=== PATIENT | female | born 1990 ===

== ENCOUNTER 2022-12-31 20:32 | Inpatient (IN) | payer OTHER, SELFPAY ==
--- NOTE | 2022-12-31 23:58 | PC.ADMIT ---
pt is a 32 year female who presented [facility] ED with AH, SI, and seeing spirits. in the ED, pt reported to seeing spirits and wanted to slit her throat with a knife. pt was in a partial program called [facility] before going to the hospital. pt tox screen was positive for THC. pt has PMH of chronic kidney disease, anxiety disorder, major depressive disorder, and AV fistula. pt has a AV fistula in left arm, so BPs cannot be performed in that arm. pt had a skin check performed. pt is receptive to treatment is looking forward to working with her doctor. start treatment plan and promote safety.
[2023-01-01 06:00] VITALS: BP 94/59; PULSE 88; RESP 18; TEMP 37.1; O2SAT 100
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
[2023-01-01 21:00] VITALS: BP 127/69; PULSE 107; TEMP 2.5; TEMP 36.5
[2023-01-02 08:14] VITALS: BP 106/58; PULSE 80; RESP 16; TEMP 36.4; O2SAT 100
[2023-01-02 15:51] VITALS: BP 95/60; PULSE 88; RESP 16; TEMP 36.4; O2SAT 98
--- NOTE | 2023-01-02 16:32 | HO.PSYCHPN ---
Subjective Subjective Date of Service: 01/02/23 Reason For Visit: psychosis Interim History: Pt reports no concerns today. She is visable in milieu, very social, interactive, approachable. She is missing her home and hopes for discharge soon. Discussed having labs tomorrow and she agrees. Talked of her history of CKD and wait for dialysis. Medication Compliance: Yes Attending Groups: No Review of Systems Acute medical concerns: No Medical Review of Systems: unchanged Mental Status Exam Mental Status Exam Patient Appearance: Appropriate Patient Orientation: Person, Place, Time and Situation Level of Consciousness: Alert Patient Behavior: Talkative and Good Eye Contact Mood Description: Anxious, Elated and Apprehensive Affect Description: Anxious and Apprehensive Patient Cognition Impaired: No Speech Pattern: Spontaneous Speech Memory Description: Episodic Impaired Thought Process: Distracted Thought Content: positive for Perseveration Depressive Symptoms: Increased Anxiety Judgement: Fair Diagnostics Vital Signs (24Hr): Vital Signs - 24 hr 01/01/23 21:00 01/02/23 08:14 01/02/23 15:51 Temperature 36.5 F L 97.6 F 97.6 F Pulse Rate 107 H 80 88 Respiratory Rate 16 16 Blood Pressure 127/69 106/58 L 95/60 Pulse Oximetry 100 98 Oxygen Delivery Method Room Air Room Air Labs 01/03/23 07:18 01/03/23 14:46 Labs: Laboratory Results - last 48 hr 01/01/23 08:03 Estimat Average Glucose 80 Hemoglobin A1c % 4.4 Triglycerides 177 H Cholesterol 131 LDL Cholesterol, Calc 60 HDL Cholesterol 36 L Medications Medications Current Medications Acetaminophen (Acetaminophen 325 Mg Tablet) 650 mg PO Q6H PRN PRN Reason: Headache/Pain Mild Scale (1-3) Al Hydroxide/Mg Hydroxide (Magnesium Hydrox/Alum Hydrox 30 Ml Oral.Susp) 30 ml PO Q6H PRN PRN Reason: Heartburn/Nausea Calcitriol (Calcitriol 0.25 Mcg Capsule) 0.25 mcg PO DAILY [facility] Last Admin: 01/02/23 08:45 Dose: 0.25 mcg Ergocalciferol (Ergocalciferol (Vitamin D2) 1,250 Mcg Capsule) 1,250 mcg PO Q7D [facility] Last Admin: 01/01/23 15:45 Dose: 1,250 mcg Hydroxyzine HCl (Hydroxyzine Hcl 25 Mg Tablet) 25 mg PO Q6H PRN PRN Reason: Anxiety Lisinopril (Lisinopril 2.5 Mg Tablet) 2.5 mg PO DAILY [facility]; Protocol Last Admin: 01/02/23 08:45 Dose: 2.5 mg Magnesium Hydroxide (Milk Of Magnesia 30 Ml Oral.Susp) 30 ml PO DAILY PRN PRN Reason: Constipation Melatonin (Melatonin 3 Mg Tablet) 6 mg PO BEDTIME PRN PRN Reason: Insomnia Nicotine (Nicotine 21 Mg Patch.Td24) 21 mg TRANSDERMA DAILY PRN PRN Reason: smoking cessation Last Admin: 01/02/23 08:53 Dose: 21 mg Nicotine Polacrilex (Nicotine Polacrilex 2 Mg Gum) 4 mg BUCCAL Q2H PRN PRN Reason: Nicotine Cravings Non-Formulary Medication (Febuxostat) 40 mg PO DAILY [facility] Risperidone (Risperidone 0.25 Mg Tablet) 0.25 mg PO BID [facility] Last Admin: 01/02/23 08:45 Dose: 0.25 mg Allergies Allergies Allergy/AdvReac Type Severity Reaction Status Date / Time Penicillins Allergy Anaphylaxis Verified 12/31/22 22:41 Assessment & Plan Assessment & Plan (1) Psychotic disorder: Status: Acute Code(s): F29 - Unspecified psychosis not due to a substance or known physiological condition (2) CKD (chronic kidney disease) stage 4, GFR 15-29 ml/min: Status: Acute Code(s): N18.4 - Chronic kidney disease, stage 4 (severe) Assessment and Plan: Congenital; status post fistula since July 2022 Plan Patient is a 32-year-old female with history of depression, anxiety, ADHD, 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 Patient polite, cooperative and friendly but vague in her reporting. She says she came to the hospital because she wants to talk to a doctor... Because she wants help... Saying my brain got worse in October... Patient having a difficult time articulating her symptoms. She says she 1st started getting AH of a hissing sound or police sirens in July which coincided with getting fistula placed; then she said her eye started twitching and something about her neurons.... 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 Safety Attendant tried to assess her insomnia; she denies any manic episodes but reports that she will sometimes stay up late waiting for her to call (later discovered, no but boyfriend that she met online though has never physically met). Patient was a program at [place] (though not sure for what) for the past week but instead of completing the program she was sent or agreed to go to the hospital instead; in ED she was started on Risperdal 0.25 mg b.i.d. and admitted to [facility]. Patient says that for the past 2 days on Risperdal she has been feeling better, sleeping better thinking more clearly and that AH is diminishing. Impression: Patient is reporting is a little vague and history not fully clear. Diagnosis not fully clear but provisionally, psychotic illness is adequate (may be also schizotypal?). Patient reported psychiatric issues, AH and brain confusion started this past May however it seems much more likely that patient has mental health issues prior to this, including being in special education classes and losing custody of her 14-year-old daughter via the court. Patient has congenital CKD, currently stage IV status post fistula and so will tread lightly in terms of medication management. She was started on Risperdal 0.25 mg b.i.d. 2 days ago in the emergency room; will leave it there for now as patient reports symptoms of AH ready improved, including clear thinking, less AH and better sleep. Plan: CV Q15 Continue Risperdal 0.25mg BID continue home meds gather collateral reviewed labs from sending facility; chronically elevated creatinine otherwise not concerning 01/02- continue tx. Labs 01/03 to follow for CKD. Informed Consent: understands Reason for continued inpatient stay Substantial Risk for: rapid decompensation Time Spent With Patient Time: Total time managing care of this patient today ____ minutes.
[2023-01-03 07:59] LABS: Alanine Aminotransferase 11 U/L (0-31); Albumin Level 3.7 g/dL (3.5-5.0); Alkaline Phosphatase 43 U/L (39-117); Anion Gap 14 (12-20); Aspartate Amino Transferase 12 U/L (5-31); Bilirubin Total 0.2 mg/dL (0.0-1.0); Blood Urea Nitrogen 69 mg/dL (9-16); Calcium 9.7 mg/dL (8.4-10.2); Carbon Dioxide 18 mmol/L (22-29); Chloride 112 mmol/L (96-108); Estimated Glomerular Filt Rate 13; Glucose Random 90 mg/dL (60-115); Potassium 6.4 mmol/L (3.3-5.1); Sodium 138 mmol/L (135-145); Total Protein 5.8 g/dL (6.5-8.0)
[2023-01-03 08:00] VITALS: BP 119/69; PULSE 85; RESP 16; TEMP 35.9; O2SAT 100
--- NOTE | 2023-01-03 09:01 | PC.NURSE ---
Provider Shelly Boyer ADVERTISING OPERATIONS COORDINATOR notified of elevated Potassium of 6.4. New orders received for IV placement and Lokelma. IV placed in right AC on unit by ED RN at 0905 and medication administered as ordered. Stat repeat labwork ordered and hospital PA on unit to assess patient. Pt placed on 1:1 for safety due to IV placement.
--- NOTE | 2023-01-03 09:46 | HO.HSGERICON ---
History of Present Illness Data of Consult Service Date: 01/03/23 Requesting physician: Poly Boyer Primary Care Provider: Unknown Physician HPI Reason for consult: CKD pt, pending dialysis, K6.4 this a.m. This is a 32 year old female with history of congenital kidney disease currently CKF4 currently admitted to for management of mental health issues which have become more troublesome over the past few weeks. Routine labs were obtained today and revealed a potassium of 6.4. The hospitalist service was asked to see her in consultation for assistance and management. Patient's primary mine wedge sawyer is Dr. Grewal in [place], [place]. She is unable to provide any specific diagnosis around her kidney disease, just stating that it stems from . She had AV fistula placed in July in her left upper extremity unfortunately is nonfunctioning. She states there are plans to abandon the left side and place a fistula in the right upper extremity in the coming weeks. She was previously taking sodium bicarbonate and Lokelma daily but these were discontinued on December 01 during last visit with her mine wedge sawyer at which time her potassium was reportedly normal. Today she denies any shortness of breath. She is eating ok and has no other medical complaints. [facility] Medical History CKD (chronic kidney disease) stage 4, GFR 15-29 ml/min Psychotic disorder Functional capacity: independent ambulation Pertinent family history: denies any family history of kidney disease Social History Household Members: Family Housing: Apartment Do you presently have visiting nurse or other home services: No Patient Tobacco Use Status: Current everyday Tobacco user Tobacco use type: Cigarette Cigarette Packs Per Day: 1.5 Cigarettes Per Day: 30.0 Smoked in Last 30 Days: Yes e-Cigarette/Vaping Use: Never Used Patient Interested in Nicotine Replacement: Yes (patch and gum) Patient Given Instructions on How to Stop Smoking: Yes Date Education Initiated: 01/01/23 Second Hand Smoke Exposure: No Use of substances other than those prescribed or required for medical reasons: Yes Substance Use Type: Marijuana Substance Use Frequency: Occasionally Last Used Substance: Just Prior to Admission Currently Displaying Signs/Symptoms of Drug Intoxication Withdrawal: No Any prior treatment program specific to substance use: No Have you been hit, kicked, punched, or otherwise hurt by someone within the past year? If so, by whom?: No Do you feel safe in your current relationship?: No Current Relationship Is there a partner from a previous relationship who is making you feel unsafe now?: No Are you made to feel afraid or neglected: No Advance Directives: No Advance Directives Information Provided: No Do you have thoughts of harming others: None Do you have a plan to hurt others: No Plan Recently lost weight without trying: No How much weight loss: Not applicable Eating poorly because of decreased appetite: No Nutrition screen score: 0 Nutrition Risks: No Nutritional Risk Patient : No : No Poor oral hygiene: No Meds Allergies Allergy/AdvReac Type Severity Reaction Status Date / Time Penicillins Allergy Anaphylaxis Verified 12/31/22 22:41 Active Medications: Current Medications Acetaminophen (Acetaminophen 325 Mg Tablet) 650 mg PO Q6H PRN PRN Reason: Headache/Pain Mild Scale (1-3) Al Hydroxide/Mg Hydroxide (Magnesium Hydrox/Alum Hydrox 30 Ml Oral.Susp) 30 ml PO Q6H PRN PRN Reason: Heartburn/Nausea Calcitriol (Calcitriol 0.25 Mcg Capsule) 0.25 mcg PO DAILY [facility] Last Admin: 01/03/23 08:22 Dose: 0.25 mcg Ergocalciferol (Ergocalciferol (Vitamin D2) 1,250 Mcg Capsule) 1,250 mcg PO Q7D [facility] Last Admin: 01/01/23 15:45 Dose: 1,250 mcg Hydroxyzine HCl (Hydroxyzine Hcl 25 Mg Tablet) 25 mg PO Q6H PRN PRN Reason: Anxiety Lisinopril (Lisinopril 2.5 Mg Tablet) 2.5 mg PO DAILY [facility]; Protocol Last Admin: 01/03/23 08:22 Dose: 2.5 mg Magnesium Hydroxide (Milk Of Magnesia 30 Ml Oral.Susp) 30 ml PO DAILY PRN PRN Reason: Constipation Melatonin (Melatonin 3 Mg Tablet) 6 mg PO BEDTIME PRN PRN Reason: Insomnia Nicotine (Nicotine 21 Mg Patch.Td24) 21 mg TRANSDERMA DAILY PRN PRN Reason: smoking cessation Last Admin: 01/02/23 08:53 Dose: 21 mg Nicotine Polacrilex (Nicotine Polacrilex 2 Mg Gum) 4 mg BUCCAL Q2H PRN PRN Reason: Nicotine Cravings Non-Formulary Medication (Febuxostat) 40 mg PO DAILY [facility] Risperidone (Risperidone 0.25 Mg Tablet) 0.25 mg PO BID [facility] Last Admin: 01/03/23 08:22 Dose: 0.25 mg Home Medications Medication Instructions Recorded Confirmed Last Taken Type calcitriol 0.25 mcg capsule 0.25 mcg PO DAILY 12/31/22 12/31/22 Unknown History ergocalciferol (vitamin D2) 1,250 1,250 mcg PO QWEEK 12/31/22 12/31/22 Unknown History mcg (50,000 unit) capsule febuxostat 40 mg tablet 40 mg PO DAILY 12/31/22 12/31/22 Unknown History hydroxyzine HCl 25 mg tablet 25 mg PO TID PRN Anxiety 12/31/22 12/31/22 Unknown History lisinopril 2.5 mg tablet 2.5 mg PO DAILY 12/31/22 12/31/22 Unknown History melatonin 3 mg tablet 6 mg PO BEDTIME PRN Insomnia 12/31/22 12/31/22 Unknown History nicotine 21 mg/24 hr daily 1 patch transdermal DAILY 12/31/22 12/31/22 Unknown History transdermal patch risperidone 0.25 mg tablet 0.25 mg PO BID 12/31/22 12/31/22 Unknown History Results Labs 01/03/23 07:18 01/03/23 09:11 Labs: Laboratory Results - last 24 hr 01/03/23 07:18 MCV 91.9 MCH 32.2 MCHC 35.1 H RDW 11.1 Plt Count 159 L MPV 13.0 H Absolute Nucleated RBC 0.000 Nucleated RBC % (auto) 0.0 Anion Gap 14 Estim Creat Clear Calc TNP Estimated GFR 13 Random Glucose 90 Calcium 9.7 Total Bilirubin 0.2 AST 12 ALT 11 Alkaline Phosphatase 43 Total Protein 5.8 L Albumin 3.7 Assessment and Plan (1) Hyperkalemia: Status: Acute Plan This is a 32-year-old female with history of CKD4, PTSD, anxiety, ADHD admitted to [facility] for management of increased anxiety found hyperkalemia Hyperkalemia/metabolic acidosis/CKD4 EKG normal -stop lisinopril -K restricted diet -lokelma 10 gm x2 today, then daily until k normalizes after which time can likely change to q2d or 3x/wk dosing -sodium bicarb 1300 bid -1L sodium bicarb -repeat BMP this afternoon -follow BMP daily until K improves -nephrology following thank you for allowing us to participate in the care of this patient, we will follow along for now Time Spent With Patient Time: Total time managing care of this patient today ____ minutes. Physical Exam Vital Signs: Last Vital Signs Temp 96.6 F L 01/03/23 08:00 Pulse 85 01/03/23 08:00 Resp 16 01/03/23 08:00 BP 119/69 01/03/23 08:00 Pulse Ox 100 01/03/23 08:00 O2 Del Method Room Air 01/03/23 08:00 Const General: cooperative, comfortable, no acute distress, alert and awake Nutritional Appearance: thin Orientation/consciousness: patient oriented x3 Resp Effort & Inspection: normal respiratory effort, able to speak in complete sentences, no respiratory distress and no use of accessory muscles Auscultation: clear to auscultation bilaterally Cardio Rate: regular rate GI Other: multiple well healed surgical scars Neuro General: patient oriented x3, moves all extremities and CN's II-XI intact bilaterally Cranial nerves: Yes CN's II-XII intact bilaterally
--- NOTE | 2023-01-03 11:33 | PM.CNNEP ---
History of Present Illness Reason for Consult Consult date: 01/03/23 Chief Complaint Chief complaint: psychosis History of Present Illness Narrative: Ms. 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 Course is now complicated by metabolic acidosis, hyperkalemia and CKD without oliguria. She has a LUE AVF which has failed, never used, with plans to convert to RUE AVG in the future. She tells me she used to be on Sodium BIcarbonate and Lokelma which were stopped in November. [facility] Past Medical History Medical History CKD (chronic kidney disease) stage 4, GFR 15-29 ml/min Psychotic disorder Functional capacity: independent ambulation Family History Pertinent family history: denies any family history of kidney disease Social History Social History Household Members: Family Housing: Apartment Do you presently have visiting nurse or other home services: No Patient Tobacco Use Status: Current everyday Tobacco user Tobacco use type: Cigarette Cigarette Packs Per Day: 1.5 Cigarettes Per Day: 30.0 Smoked in Last 30 Days: Yes e-Cigarette/Vaping Use: Never Used Patient Interested in Nicotine Replacement: Yes (patch and gum) Patient Given Instructions on How to Stop Smoking: Yes Date Education Initiated: 01/01/23 Second Hand Smoke Exposure: No Use of substances other than those prescribed or required for medical reasons: Yes Substance Use Type: Marijuana Substance Use Frequency: Occasionally Last Used Substance: Just Prior to Admission Currently Displaying Signs/Symptoms of Drug Intoxication Withdrawal: No Any prior treatment program specific to substance use: No Have you been hit, kicked, punched, or otherwise hurt by someone within the past year? If so, by whom?: No Do you feel safe in your current relationship?: No Current Relationship Is there a partner from a previous relationship who is making you feel unsafe now?: No Are you made to feel afraid or neglected: No Advance Directives: No Advance Directives Information Provided: No Do you have thoughts of harming others: None Do you have a plan to hurt others: No Plan Recently lost weight without trying: No How much weight loss: Not applicable Eating poorly because of decreased appetite: No Nutrition screen score: 0 Nutrition Risks: No Nutritional Risk Patient : No : No Poor oral hygiene: No Meds Allergies Allergy/AdvReac Type Severity Reaction Status Date / Time Penicillins Allergy Anaphylaxis Verified 12/31/22 22:41 Active Medications: Current Medications Acetaminophen (Acetaminophen 325 Mg Tablet) 650 mg PO Q6H PRN PRN Reason: Headache/Pain Mild Scale (1-3) Al Hydroxide/Mg Hydroxide (Magnesium Hydrox/Alum Hydrox 30 Ml Oral.Susp) 30 ml PO Q6H PRN PRN Reason: Heartburn/Nausea Calcitriol (Calcitriol 0.25 Mcg Capsule) 0.25 mcg PO DAILY [facility] Last Admin: 01/03/23 08:22 Dose: 0.25 mcg Ergocalciferol (Ergocalciferol (Vitamin D2) 1,250 Mcg Capsule) 1,250 mcg PO Q7D [facility] Last Admin: 01/01/23 15:45 Dose: 1,250 mcg Hydroxyzine HCl (Hydroxyzine Hcl 25 Mg Tablet) 25 mg PO Q6H PRN PRN Reason: Anxiety Sodium Bicarbonate 150 meq/ (Dextrose) 1,000 mls @ 100 mls/hr IV .Q10H [facility] Stop: 01/03/23 20:29 Magnesium Hydroxide (Milk Of Magnesia 30 Ml Oral.Susp) 30 ml PO DAILY PRN PRN Reason: Constipation Melatonin (Melatonin 3 Mg Tablet) 6 mg PO BEDTIME PRN PRN Reason: Insomnia Nicotine (Nicotine 21 Mg Patch.Td24) 21 mg TRANSDERMA DAILY PRN PRN Reason: smoking cessation Last Admin: 01/02/23 08:53 Dose: 21 mg Nicotine Polacrilex (Nicotine Polacrilex 2 Mg Gum) 4 mg BUCCAL Q2H PRN PRN Reason: Nicotine Cravings Non-Formulary Medication (Febuxostat) 40 mg PO DAILY [facility] Risperidone (Risperidone 0.25 Mg Tablet) 0.25 mg PO BID [facility] Last Admin: 01/03/23 08:22 Dose: 0.25 mg Sodium Bicarbonate (Sodium Bicarbonate 650 Mg Tablet) 1,300 mg PO BID [facility] Last Admin: 01/03/23 11:00 Dose: 1,300 mg Sodium Zirconium Cyclosilicate (Sodium Zirconium Cyclosilicate 10 Gm Powd.Pack) 10 gm PO DAILY [facility] Sodium Zirconium Cyclosilicate (Sodium Zirconium Cyclosilicate 10 Gm Powd.Pack) 10 gm PO DAILY [facility] Stop: 01/03/23 17:01 Home Medications Medication Instructions Recorded Confirmed Last Taken Type calcitriol 0.25 mcg capsule 0.25 mcg PO DAILY 12/31/22 12/31/22 Unknown History ergocalciferol (vitamin D2) 1,250 1,250 mcg PO QWEEK 12/31/22 12/31/22 Unknown History mcg (50,000 unit) capsule febuxostat 40 mg tablet 40 mg PO DAILY 12/31/22 12/31/22 Unknown History hydroxyzine HCl 25 mg tablet 25 mg PO TID PRN Anxiety 12/31/22 12/31/22 Unknown History lisinopril 2.5 mg tablet 2.5 mg PO DAILY 12/31/22 12/31/22 Unknown History melatonin 3 mg tablet 6 mg PO BEDTIME PRN Insomnia 12/31/22 12/31/22 Unknown History nicotine 21 mg/24 hr daily 1 patch transdermal DAILY 12/31/22 12/31/22 Unknown History transdermal patch risperidone 0.25 mg tablet 0.25 mg PO BID 12/31/22 12/31/22 Unknown History Physical Exam Vital Signs: Last Vital Signs Temp 96.6 F L 01/03/23 08:00 Pulse 85 01/03/23 08:00 Resp 16 01/03/23 08:00 BP 119/69 01/03/23 08:00 Pulse Ox 100 01/03/23 08:00 O2 Del Method Room Air 01/03/23 08:00 Const General: cooperative, comfortable, no acute distress, alert and awake Nutritional Appearance: thin Orientation/consciousness: patient oriented x3 Resp Effort & Inspection: normal respiratory effort, able to speak in complete sentences, no respiratory distress and no use of accessory muscles Auscultation: clear to auscultation bilaterally Cardio Rate: regular rate GI Other: multiple well healed surgical scars Neuro General: patient oriented x3, moves all extremities and CN's II-XI intact bilaterally Cranial nerves: Yes CN's II-XII intact bilaterally Results Lab Results 01/03/23 07:18 01/03/23 09:11 Lab results: Chemistry 01/03/23 01/03/23 07:18 09:11 Sodium 138 Potassium 6.4 H* 6.4 H* Carbon Dioxide 18 L BUN 69 H Creatinine 3.86 H Calcium 9.7 Hematology 10/08/23 07:18 WBC 7.1 Hgb 10.7 L Plt Count 159 L Assessment and Plan (1) Hyperkalemia: Status: Acute (2) CKD stage G5/A1, GFR <15 and albumin creatinine ratio <30 mg/g: Status: Acute (3) Metabolic acidosis: Status: Acute (4) RTA (renal tubular acidosis): Status: Acute Plan Ms. 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 Course is now complicated by metabolic acidosis, hyperkalemia and CKD without oliguria. 1. CKD stage 5, stable Non oliguric Without acute dialysis need 2. Hyperkalemia Induced by uncontrolled metabolic acidosis and Lisinopril use EKG normal 3. 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 Isotonic 150meq/L formulation -repeat BMP this afternoon Time Spent With Patient Time: Total time managing care of this patient today ____ minutes. Procedures Date of Service Date of Service: 01/03/23
--- NOTE | 2023-01-03 13:38 | HO.PSYCHPN ---
Subjective Subjective Date of Service: 01/03/23 Reason For Visit: psychosis Interim History: Hyperkalemic with labs today. Consultations with hospitalist and nephrology much appreciated. Pt had IV start, sodium bicarb,lokelma, repeat labs this afternoon. Care discussed with pt's mom, Shayy who reports pt did have good control of K+, however with poor appetite she was not following a regime where she was eating regularly to sustain. Mom agrees that a nutritional consult and continuing a regular diet to offer pt choices is the best approach to avoid weight loss and to keep electrolytes in balance. Pt one one to one due to IV. She discussed knowing she was not feeling well and knowing something was not right this a.m. She is well informed about her illness and is a good self advocate. Medication Compliance: Yes Attending Groups: Intermittent Review of Systems Acute medical concerns: No Medical Review of Systems: unchanged Mental Status Exam Mental Status Exam Patient Appearance: Appropriate Patient Orientation: Person, Place, Time and Situation Level of Consciousness: Alert Patient Behavior: Talkative and Good Eye Contact Mood Description: Anxious, Elated and Apprehensive Affect Description: Anxious and Apprehensive Patient Cognition Impaired: No Speech Pattern: Spontaneous Speech Memory Description: Episodic Impaired Thought Process: Distracted Thought Content: positive for Perseveration Depressive Symptoms: Increased Anxiety Judgement: Fair Diagnostics Vital Signs (24Hr): Vital Signs - 24 hr 01/02/23 15:51 01/03/23 08:00 Temperature 97.6 F 96.6 F L Pulse Rate 88 85 Respiratory Rate 16 16 Blood Pressure 95/60 119/69 Pulse Oximetry 98 100 Oxygen Delivery Method Room Air Room Air Labs 01/03/23 07:18 01/03/23 14:46 Labs: Laboratory Results - last 48 hr 01/03/23 01/03/23 07:18 09:11 WBC 7.1 RBC 3.32 L Hgb 10.7 L Hct 30.5 L MCV 91.9 MCH 32.2 MCHC 35.1 H RDW 11.1 Plt Count 159 L MPV 13.0 H Absolute Nucleated RBC 0.000 Nucleated RBC % (auto) 0.0 Sodium 138 Potassium 6.4 H* 6.4 H* Chloride 112 H Carbon Dioxide 18 L Anion Gap 14 BUN 69 H Creatinine 3.86 H Estim Creat Clear Calc TNP Estimated GFR 13 Random Glucose 90 Calcium 9.7 Total Bilirubin 0.2 AST 12 ALT 11 Alkaline Phosphatase 43 Total Protein 5.8 L Albumin 3.7 Medications Medications Current Medications Acetaminophen (Acetaminophen 325 Mg Tablet) 650 mg PO Q6H PRN PRN Reason: Headache/Pain Mild Scale (1-3) Al Hydroxide/Mg Hydroxide (Magnesium Hydrox/Alum Hydrox 30 Ml Oral.Susp) 30 ml PO Q6H PRN PRN Reason: Heartburn/Nausea Calcitriol (Calcitriol 0.25 Mcg Capsule) 0.25 mcg PO DAILY [facility] Last Admin: 01/03/23 08:22 Dose: 0.25 mcg Ergocalciferol (Ergocalciferol (Vitamin D2) 1,250 Mcg Capsule) 1,250 mcg PO Q7D [facility] Last Admin: 01/01/23 15:45 Dose: 1,250 mcg Hydroxyzine HCl (Hydroxyzine Hcl 25 Mg Tablet) 25 mg PO Q6H PRN PRN Reason: Anxiety Sodium Bicarbonate 150 meq/ (Dextrose) 1,000 mls @ 100 mls/hr IV .Q10H [facility] Stop: 01/03/23 20:29 Last Admin: 01/03/23 11:32 Dose: 100 mls/hr Magnesium Hydroxide (Milk Of Magnesia 30 Ml Oral.Susp) 30 ml PO DAILY PRN PRN Reason: Constipation Melatonin (Melatonin 3 Mg Tablet) 6 mg PO BEDTIME PRN PRN Reason: Insomnia Nicotine (Nicotine 21 Mg Patch.Td24) 21 mg TRANSDERMA DAILY PRN PRN Reason: smoking cessation Last Admin: 01/02/23 08:53 Dose: 21 mg Nicotine Polacrilex (Nicotine Polacrilex 2 Mg Gum) 4 mg BUCCAL Q2H PRN PRN Reason: Nicotine Cravings Non-Formulary Medication (Febuxostat) 40 mg PO DAILY [facility] Risperidone (Risperidone 0.25 Mg Tablet) 0.25 mg PO BID [facility] Last Admin: 01/03/23 08:22 Dose: 0.25 mg Sodium Bicarbonate (Sodium Bicarbonate 650 Mg Tablet) 1,300 mg PO BID [facility] Last Admin: 01/03/23 11:00 Dose: 1,300 mg Sodium Zirconium Cyclosilicate (Sodium Zirconium Cyclosilicate 10 Gm Powd.Pack) 10 gm PO DAILY [facility] Sodium Zirconium Cyclosilicate (Sodium Zirconium Cyclosilicate 10 Gm Powd.Pack) 10 gm PO DAILY [facility] Stop: 01/03/23 17:01 Allergies Allergies Allergy/AdvReac Type Severity Reaction Status Date / Time Penicillins Allergy Anaphylaxis Verified 12/31/22 22:41 Assessment & Plan Assessment & Plan (1) Hyperkalemia: Status: Acute Code(s): E87.5 - Hyperkalemia (2) CKD stage G5/A1, GFR <15 and albumin creatinine ratio <30 mg/g: Status: Acute Code(s): N18.5 - Chronic kidney disease, stage 5 (3) Metabolic acidosis: Status: Acute Code(s): E87.20 - Acidosis, unspecified (4) RTA (renal tubular acidosis): Status: Acute Code(s): N25.89 - Other disorders resulting from impaired renal tubular function (5) Psychotic disorder: Status: Acute Code(s): F29 - Unspecified psychosis not due to a substance or known physiological condition Assessment and Plan: 01/03/23 continue medical plan and current regime and plan of care. nutritional consult Plan Ms. 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 Course is now complicated by metabolic acidosis, hyperkalemia and CKD without oliguria. 1. CKD stage 5, stable Non oliguric Without acute dialysis need 2. Hyperkalemia Induced by uncontrolled metabolic acidosis and Lisinopril use EKG normal 3. 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 Isotonic 150meq/L formulation -repeat BMP this afternoon Informed Consent: understands Reason for continued inpatient stay Substantial Risk for: rapid decompensation Time Spent With Patient Time: Total time managing care of this patient today ____ minutes.
--- NOTE | 2023-01-03 15:23 | PC.NURSE ---
Lab called to report critical Creatinine of 4.17. Hospitalist Jolie MAGANA and Poly Boyer NP both notified of critical value.
[2023-01-03 18:00] VITALS: PULSE 94; RESP 20; TEMP 37.1; O2SAT 100
[2023-01-04 06:00] VITALS: BP 104/56; PULSE 87; RESP 18; TEMP 36; O2SAT 100
--- NOTE | 2023-01-04 12:07 | MHC.CLN ---
NUTRITION CONSULT FOR CKD, POOR INTAKE AND FOOD CHOICES. PATIENT WITH CONGENITAL RENAL DISEASE, CKD STAGE 5, NON OLIGURIC WITHOUT ACUTE DIALYSIS NEED. HAS AV FISTULA. VISITED WITH PATIENT IN PRIVATE ROOM. APPEARS WELL EDUCATED ON DIET RESTRICTIONS REGARDING CKD. DOES NOT WANT NUTRITIONAL SUPPLEMENT. PROVIDED PATIENT WITH THERAPEUTIC MENU FOR 2 GRAM SODIUM, LOW POTASSIUM, LOW PHOSPHORUS (FACILITY RENAL DIET). DOES NOT WANT RESTRICTED DIET AND WANTS TO CONTINUE TO MAKE OWN FOOD CHOICES. ADVISED TO REVIEW FOOD ITEMS ON THERAPEUTIC MENU FOR BEST CHOICES. REVIEWED PATIENT CONVERSATION WITH NURSING. PATIENT APPEARS THIN. SUSPECT THAT INTAKE WILL BE POOR WITH RESTRICTED, THERAPEUTIC DIET. RECOMMEND THAT NEPHROLOGY CONTINUE TO MONITOR CLOSELY. RD AVAILABLE BY CONSULT NEEDED.
--- NOTE | 2023-01-04 12:44 | PM.PNNEP ---
Subjective Subjective Date of Service: 01/04/23 Interval history: Acidosis under control K in manageable range Pt non-oliguric Physical Exam Vital Signs: Vital Signs: Last Vital Signs Temp 96.8 F 01/04/23 06:00 Pulse 87 01/04/23 06:00 Resp 18 01/04/23 06:00 BP 104/56 L 01/04/23 06:00 Pulse Ox 100 01/04/23 06:00 O2 Del Method Room Air 01/04/23 06:00 Const: General: cooperative, comfortable, no acute distress, alert and awake Nutritional Appearance: thin Orientation/consciousness: patient oriented x3 Resp: Effort & Inspection: normal respiratory effort, able to speak in complete sentences, no respiratory distress and no use of accessory muscles Auscultation: clear to auscultation bilaterally Cardio: Rate: regular rate GI: Other: multiple well healed surgical scars Neuro: General: patient oriented x3, moves all extremities and CN's II-XI intact bilaterally Cranial nerves: Yes CN's II-XII intact bilaterally Objective Data Labs 01/03/23 07:18 01/04/23 07:55 Labs: Laboratory Results - last 24 hr 01/03/23 01/04/23 14:46 07:55 Sodium 139 141 Potassium 5.3 H 5.2 H Chloride 106 106 Carbon Dioxide 22 24 Anion Gap 16 16 BUN 68 H 72 H Creatinine 4.17 H* 4.34 H* Estim Creat Clear Calc TNP TNP Estimated GFR 12 12 Random Glucose 89 88 Calcium 9.7 8.8 D Procedures Date of Service Date of Service: 01/04/23 Assessment & Plan Assessment and plan (1) Hyperkalemia: Status: Acute (2) CKD stage G5/A1, GFR <15 and albumin creatinine ratio <30 mg/g: Status: Acute (3) Metabolic acidosis: Status: Acute (4) RTA (renal tubular acidosis): Status: Acute Plan Ms. 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 Course is now complicated by metabolic acidosis, hyperkalemia and CKD without oliguria. 1. CKD stage 5, stable Non oliguric Without acute dialysis need 2. Hyperkalemia Induced by uncontrolled metabolic acidosis and Lisinopril use EKG normal 3. 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 Time Spent With Patient Time: Total time managing care of this patient today ____ minutes.
--- NOTE | 2023-01-04 13:27 | HO.PSYCHPN ---
Subjective Subjective Date of Service: 01/04/23 Reason For Visit: psychosis Interim History: Pt seen, discussed in team. Plan of care reviewed. Pt reports I have TD movements in my legs and am stopping Risperdal. Reports twitching Met with senior account representative who reports pt may keep regular diet as weight gain is a priority. Pt has been given a menu for a 2 gram Sodium, Low Potassium, Low Phosphorus Diet to help her guide choices. She has been encouraged to avoid potato chips and bananas. She is talking about discharge and will talk with primary team about this tomorrow. Medication Compliance: Yes Side effects from medications: Yes Attending Groups: No Review of Systems Acute medical concerns: No Medical Review of Systems: unchanged Mental Status Exam Mental Status Exam Patient Appearance: Appropriate Patient Orientation: Person, Place, Time and Situation Level of Consciousness: Alert Patient Behavior: Talkative and Good Eye Contact Mood Description: Anxious, Elated and Apprehensive Affect Description: Anxious and Apprehensive Patient Cognition Impaired: No Speech Pattern: Spontaneous Speech Memory Description: Episodic Impaired Thought Process: Distracted Thought Content: positive for Perseveration Depressive Symptoms: Increased Anxiety Judgement: Fair Diagnostics Vital Signs (24Hr): Vital Signs - 24 hr 01/03/23 18:00 01/04/23 06:00 Temperature 98.8 F 96.8 F Pulse Rate 94 87 Respiratory Rate 20 18 Blood Pressure 104/56 L Pulse Oximetry 100 100 Oxygen Delivery Method Room Air Room Air Labs 01/03/23 07:18 01/04/23 07:55 Labs: Laboratory Results - last 48 hr 01/03/23 01/03/23 01/03/23 07:18 09:11 14:46 WBC 7.1 RBC 3.32 L Hgb 10.7 L Hct 30.5 L MCV 91.9 MCH 32.2 MCHC 35.1 H RDW 11.1 Plt Count 159 L MPV 13.0 H Absolute Nucleated RBC 0.000 Nucleated RBC % (auto) 0.0 Sodium 138 139 Potassium 6.4 H* 6.4 H* 5.3 H Chloride 112 H 106 Carbon Dioxide 18 L 22 Anion Gap 14 16 BUN 69 H 68 H Creatinine 3.86 H 4.17 H* Estim Creat Clear Calc TNP TNP Estimated GFR 13 12 Random Glucose 90 89 Calcium 9.7 9.7 Total Bilirubin 0.2 AST 12 ALT 11 Alkaline Phosphatase 43 Total Protein 5.8 L Albumin 3.7 01/04/23 07:55 WBC RBC Hgb Hct MCV MCH MCHC RDW Plt Count MPV Absolute Nucleated RBC Nucleated RBC % (auto) Sodium 141 Potassium 5.2 H Chloride 106 Carbon Dioxide 24 Anion Gap 16 BUN 72 H Creatinine 4.34 H* Estim Creat Clear Calc TNP Estimated GFR 12 Random Glucose 88 Calcium 8.8 D Total Bilirubin AST ALT Alkaline Phosphatase Total Protein Albumin Medications Medications Current Medications Acetaminophen (Acetaminophen 325 Mg Tablet) 650 mg PO Q6H PRN PRN Reason: Headache/Pain Mild Scale (1-3) Al Hydroxide/Mg Hydroxide (Magnesium Hydrox/Alum Hydrox 30 Ml Oral.Susp) 30 ml PO Q6H PRN PRN Reason: Heartburn/Nausea Calcitriol (Calcitriol 0.25 Mcg Capsule) 0.25 mcg PO DAILY [facility] Last Admin: 01/04/23 08:46 Dose: 0.25 mcg Ergocalciferol (Ergocalciferol (Vitamin D2) 1,250 Mcg Capsule) 1,250 mcg PO Q7D [facility] Last Admin: 01/01/23 15:45 Dose: 1,250 mcg Hydroxyzine HCl (Hydroxyzine Hcl 25 Mg Tablet) 25 mg PO Q6H PRN PRN Reason: Anxiety Magnesium Hydroxide (Milk Of Magnesia 30 Ml Oral.Susp) 30 ml PO DAILY PRN PRN Reason: Constipation Melatonin (Melatonin 3 Mg Tablet) 6 mg PO BEDTIME PRN PRN Reason: Insomnia Nicotine (Nicotine 21 Mg Patch.Td24) 21 mg TRANSDERMA DAILY PRN PRN Reason: smoking cessation Last Admin: 01/02/23 08:53 Dose: 21 mg Nicotine Polacrilex (Nicotine Polacrilex 2 Mg Gum) 4 mg BUCCAL Q2H PRN PRN Reason: Nicotine Cravings Non-Formulary Medication (Febuxostat) 40 mg PO DAILY [facility] Risperidone (Risperidone 0.25 Mg Tablet) 0.25 mg PO BID [facility] Last Admin: 01/04/23 08:46 Dose: 0.25 mg Sodium Bicarbonate (Sodium Bicarbonate 650 Mg Tablet) 1,300 mg PO BID [facility] Last Admin: 01/04/23 08:46 Dose: 1,300 mg Sodium Zirconium Cyclosilicate (Sodium Zirconium Cyclosilicate 10 Gm Powd.Pack) 10 gm PO DAILY [facility] Last Admin: 01/04/23 08:46 Dose: 10 gm Allergies Allergies Allergy/AdvReac Type Severity Reaction Status Date / Time Penicillins Allergy Anaphylaxis Verified 12/31/22 22:41 Assessment & Plan Assessment & Plan (1) Hyperkalemia: Status: Acute Code(s): E87.5 - Hyperkalemia (2) CKD stage G5/A1, GFR <15 and albumin creatinine ratio <30 mg/g: Status: Acute Code(s): N18.5 - Chronic kidney disease, stage 5 (3) Metabolic acidosis: Status: Acute Code(s): E87.20 - Acidosis, unspecified (4) RTA (renal tubular acidosis): Status: Acute Code(s): N25.89 - Other disorders resulting from impaired renal tubular function (5) Psychotic disorder: Status: Acute Code(s): F29 - Unspecified psychosis not due to a substance or known physiological condition Assessment and Plan: 01/04/23- Discontinue Risperdal. Pt reports sx of twitching and TD Plan Ms. 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 Course is now complicated by metabolic acidosis, hyperkalemia and CKD without oliguria. 1. CKD stage 5, stable Non oliguric Without acute dialysis need 2. Hyperkalemia Induced by uncontrolled metabolic acidosis and Lisinopril use EKG normal 3. 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 Informed Consent: understands Reason for continued inpatient stay Substantial Risk for: rapid decompensation and med/psych decompensation Time Spent With Patient Time: Total time managing care of this patient today ____ minutes.
[2023-01-04 17:35] VITALS: BP 109/63; PULSE 78; TEMP 37.2
--- NOTE | 2023-01-04 21:05 | PC.NURSE ---
Pt c/o chest pain 3.5-07/06 to this video game script writer; pt stated pain had begun shortly beforehand. Pt said pain is located below left nipple line and is not radiating. VS: 109/63, 78, 98.9 F. OnCall provider notified and orders obtained. Stat EKG showed normal sinus rhythm, normal ECG, no changes from ECG on 01/03/23. Pt reported pain passed at 1805 and said may have stopped because she had eaten her meal.
[2023-01-05 08:00] VITALS: BP 108/61; PULSE 85; RESP 16; TEMP 36.2; O2SAT 98
--- NOTE | 2023-01-05 09:13 | HO.PSYCHPN ---
Subjective Subjective Date of Service: 01/05/23 Reason For Visit: psychosis Interim History: Met with patient; discussed with team; reviewed notes Patient reports that she is feeling much better. She denies any AVH and says she continues to feel clear minded. She said she developed some leg twitching from Risperdal and refuses to take it any longer. Air Pollution Analyst discussed metabolic acidosis/hyperkalemia and possible leg twitching from metabolic derangement however patient says regardless she does not want this medication anymore, that she feels fine. Air Pollution Analyst also expressed some concern and reminded patient that she 1st started feeling better, more clear minded, reduction of AH and able to sleep when she was 1st started on Risperdal and that given her kidney function there is likely still some circulating in her system; show card writer explained that it is quite possible or maybe even likely that symptoms will return if she remains off this medication. Patient said that she disagrees and that for now, she will take her chances and wants to discharge; she conceded that she may need medication but instead rather work with an outpatient psychiatric provider on medication regimen. Of note, patient presents with much more organized thought process. Discussed metabolic acidosis/hyperkalemia, which is now resolved, discontinuation of lisinopril and restarting of Sodium Bicarbonate/ Sodium Zirconium Cyclosilicate. Patient says that she will follow recommendations from Nephrology consult for now but will follow-up with her outpatient automation technologist Dr. Grewal regarding these medication changes. Patient also shared that via groups, she got some some insight s regarding her current boyfriend relationship although she did not want to go into details. Mental Status Exam Mental Status Exam Narrative: Pt is alert and oriented; behavior is cooperative, a little irritable but calm; patient is not in distress; dressed in casual attire with long braided hair, adequate hygiene; mood is described as good and affect congruent; eye contact appropriate; Speech is normal rate, volume and prosody and not pressured; no psychomotor agitation/retardation present; thought process goal oriented, organized and linear; Thought content is on discharge, continue treatment as an outpatient and following up with automation technologist; no delusional thinking expressed; denies any SI/HI. Denies all AVH; Patients insight and judgment fair and adequate Diagnostics Vital Signs (24Hr): Vital Signs - 24 hr 01/04/23 17:35 01/05/23 08:00 Temperature 98.9 F 97.1 F Pulse Rate 78 85 Respiratory Rate 16 Blood Pressure 109/63 108/61 Pulse Oximetry 98 Oxygen Delivery Method Room Air Labs 01/03/23 07:18 01/05/23 13:54 Labs: Laboratory Results - last 48 hr 01/03/23 01/03/23 01/04/23 09:11 14:46 07:55 Sodium 139 141 Potassium 6.4 H* 5.3 H 5.2 H Chloride 106 106 Carbon Dioxide 22 24 Anion Gap 16 16 BUN 68 H 72 H Creatinine 4.17 H* 4.34 H* Estim Creat Clear Calc TNP TNP Estimated GFR 12 12 Random Glucose 89 88 Calcium 9.7 8.8 D Medications Medications Current Medications Acetaminophen (Acetaminophen 325 Mg Tablet) 650 mg PO Q6H PRN PRN Reason: Headache/Pain Mild Scale (1-3) Al Hydroxide/Mg Hydroxide (Magnesium Hydrox/Alum Hydrox 30 Ml Oral.Susp) 30 ml PO Q6H PRN PRN Reason: Heartburn/Nausea Calcitriol (Calcitriol 0.25 Mcg Capsule) 0.25 mcg PO DAILY [facility] Last Admin: 01/05/23 08:45 Dose: 0.25 mcg Ergocalciferol (Ergocalciferol (Vitamin D2) 1,250 Mcg Capsule) 1,250 mcg PO Q7D [facility] Last Admin: 01/01/23 15:45 Dose: 1,250 mcg Hydroxyzine HCl (Hydroxyzine Hcl 25 Mg Tablet) 25 mg PO Q6H PRN PRN Reason: Anxiety Magnesium Hydroxide (Milk Of Magnesia 30 Ml Oral.Susp) 30 ml PO DAILY PRN PRN Reason: Constipation Melatonin (Melatonin 3 Mg Tablet) 6 mg PO BEDTIME PRN PRN Reason: Insomnia Nicotine (Nicotine 21 Mg Patch.Td24) 21 mg TRANSDERMA DAILY PRN PRN Reason: smoking cessation Last Admin: 01/02/23 08:53 Dose: 21 mg Nicotine Polacrilex (Nicotine Polacrilex 2 Mg Gum) 4 mg BUCCAL Q2H PRN PRN Reason: Nicotine Cravings Non-Formulary Medication (Febuxostat) 40 mg PO DAILY [facility] Sodium Bicarbonate (Sodium Bicarbonate 650 Mg Tablet) 1,300 mg PO BID [facility] Last Admin: 01/05/23 08:45 Dose: 1,300 mg Sodium Chloride (0.9 % Sodium Chloride Flush 3 Ml Syringe) 3 ml IVFLUSH QSHIFT [facility] Last Admin: 01/05/23 08:49 Dose: 3 ml Sodium Zirconium Cyclosilicate (Sodium Zirconium Cyclosilicate 10 Gm Powd.Pack) 10 gm PO DAILY [facility] Last Admin: 01/05/23 08:45 Dose: 10 gm Allergies Allergies Allergy/AdvReac Type Severity Reaction Status Date / Time Penicillins Allergy Anaphylaxis Verified 12/31/22 22:41 Assessment & Plan Assessment & Plan (1) Hyperkalemia: Status: Acute Code(s): E87.5 - Hyperkalemia (2) CKD stage G5/A1, GFR <15 and albumin creatinine ratio <30 mg/g: Status: Acute Code(s): N18.5 - Chronic kidney disease, stage 5 (3) Metabolic acidosis: Status: Resolved Code(s): E87.20 - Acidosis, unspecified (4) RTA (renal tubular acidosis): Status: Acute Code(s): N25.89 - Other disorders resulting from impaired renal tubular function (5) Psychotic disorder: Status: Acute Code(s): F29 - Unspecified psychosis not due to a substance or known physiological condition Assessment and Plan: 01/04/23- Discontinue Risperdal. 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 Patient polite, cooperative and friendly but vague in her reporting. She says she came to the hospital because she wants to talk to a doctor... Because she wants help... Saying my brain got worse in October... Patient having a difficult time articulating her symptoms. She says she 1st started getting AH of a hissing sound or police sirens in July which coincided with getting fistula placed; then she said her eye started twitching and something about her neurons.... 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 Air Pollution Analyst tried to assess her insomnia; she denies any manic episodes but reports that she will sometimes stay up late waiting for her to call (later discovered, no but boyfriend that she met online though has never physically met). Patient was a program at [facility] (though not sure for what) for the past week but instead of completing the program she was sent or agreed to go to the hospital instead; in ED she was started on Risperdal 0.25 mg b.i.d. and admitted to [facility]. Patient says that for the past 2 days on Risperdal she has been feeling better, sleeping better thinking more clearly and that AH is diminishing. Impression: Patient is reporting is a little vague and history not fully clear. Diagnosis not fully clear but provisionally, psychotic illness is adequate (may be also schizotypal?). Patient reported psychiatric issues, AH and brain confusion started this past May however it seems much more likely that patient has mental health issues prior to this, including being in special education classes and losing custody of her 14-year-old daughter via the court. Patient has congenital CKD, currently stage IV status post fistula and so will tread lightly in terms of medication management. She was started on Risperdal 0.25 mg b.i.d. 2 days ago in the emergency room; will leave it there for now as patient reports symptoms of AH ready improved, including clear thinking, less AH and better sleep. Hospital course: Patient reporting improvement since recently started on Risperdal, with reduction in AH, feeling more clear minded sleeping better. She wants to continue with this current dose. Over the weekend patient developed metabolic acidosis, hyperkalemia and CKD without oliguria; lisinopril held and Sodium Bicarbonate and Sodium Zirconium Cyclosilicate restarted; hyperkalemia resolved and patient remains stable. Patient discussed with on-call psychiatry and Pt reports I have TD movements in my legs and am stopping Risperdal. Reports twitching 01/05 Patient reports that she is feeling much better. She denies any AVH and says she continues to feel clear minded. She said she developed some leg twitching from Risperdal and refuses to take it any longer. Air Pollution Analyst discussed metabolic acidosis/hyperkalemia and possible leg twitching from metabolic derangement however patient says regardless she does not want this medication anymore, that she feels fine. Air Pollution Analyst also expressed some concern and reminded patient that she 1st started feeling better, more clear minded, reduction of AH and able to sleep when she was 1st started on Risperdal and that given her kidney function there is likely still some circulating in her system; show card writer explained that it is quite possible or maybe even likely that symptoms will return if she remains off this medication. Patient said that she disagrees and that for now, she will take her chances and wants to discharge; she conceded that she may need medication but instead rather work with an outpatient psychiatric provider on medication regimen. Of note, patient presents with much more organized thought process. -patient wants discharge. She has remained with appropriate behaviors, in good self-control, without any SI or HI and AVH having fully resolved. She reports being in a good mood and is returning to her parent's house where she lives. She agrees to follow-up with outpatient therapy and Psychiatry. Patient no longer wants any medication treatment and is focused on discharge. Patient is not in imminent risk for harm to self or others and request for discharge honored. -show card writer discussed case with Dr. Corral who saw patient over the weekend and recommended keeping medication changes but switching Sodium Zirconium Cyclosilicate to every other day -Discussed with patient metabolic acidosis/hyperkalemia, which is now resolved, discontinuation of lisinopril and restarting of Sodium Bicarbonate/ Sodium Zirconium Cyclosilicate. Patient says that she will follow recommendations from Nephrology consult for now but will follow-up with her outpatient automation technologist Dr. Grewal regarding these medication changes. -Air Pollution Analyst called patient's automation technologist, Dr. Asia Grewal and spoke with clinical senior executive assistant Lupe who said she would communicate message to Dr. Grewal. Air Pollution Analyst reported on patient's metabolic acidosis/hyperkalemia and subsequent medication changes. Air Pollution Analyst left call back number in case Dr. Grewal wanted to discuss further PLAN: CV Q 15 minutes checks Risperdal discontinued; patient reported having twitching in her legs and refuses to take; says she does not need Restarted Sodium Bicarbonate (Sodium Bicarbonate 650 Mg Tablet)? 1,300 mg PO BID NOE (Discussed with patient who will continue taking until she sees?Dr. Grewal to discuss further) Restarted Sodium Zirconium Cyclosilicate 10 Gm Powd.Pack (Lokelma)? 10 gm PO EVERY OTHER DAY (Discussed with patient who will continue taking until she sees?Dr. Grewal to discuss further) Holding Lisinopril: Discussed with patient who will continue to hold until she sees?Dr. Grewal to discuss further. 1. CKD stage 5, stable Non oliguric Without acute dialysis need 2. Hyperkalemia Induced by uncontrolled metabolic acidosis and Lisinopril use EKG normal 3. 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 Hyperkalemia/metabolic acidosis/CKD4 EKG normal -stop lisinopril -K restricted diet -lokelma 10 gm x2 today, then daily until k normalizes after which time can likely change to q2d or 3x/wk dosing -sodium bicarb 1300 bid -1L sodium bicarb -repeat BMP this afternoon -follow BMP daily until K improves -nephrology following Patient educated on: diagnosis, medication risk/benefits and medical condition Informed Consent: understands, does not understand and further education needed Reason for continued inpatient stay Substantial Risk for: stable for discharge Time Spent With Patient Time: Total time managing care of this patient today ____ minutes.
--- NOTE | 2023-01-05 15:02 | PC.NURSE ---
Dr. Gomez notified of pt's elevated Creatinine level of 4.36.
--- NOTE | 2023-01-05 15:59 | PC.NURSE ---
IV line discontinued per TO from Jovon Gomez MD, Catheter tip intact, tolerated well, pressure and band aid applied.
[2023-01-05 18:00] VITALS: BP 108/73; PULSE 73; RESP 16; TEMP 37; O2SAT 100
--- NOTE | 2023-01-05 18:21 | PM.PSYDC ---
DS: Providers Provider Date of Service: 01/06/23 Date of admission: 12/31/22 20:32 Date of discharge: 01/06/23 Primary care physician: Unknown Physician Attending physician on admission: Jovon Gomez Consults: 01/03/23 08:20 Consult to Hospitalist Stat Comment: Consulting Provider: Hospitalist Reason For Exam: CKD pt, pending dialysis, K6.4 this a.m. 01/03/23 10:45 Consult to Nephrology Routine Consulting Provider: Ryan Corral Reason for consultation: CKD, hyperkalemia Has provider been notified: No Attending physician on discharge: Jovon Gomez DS: Diagnosis Discharge Diagnosis (1) Hyperkalemia: Status: Acute (2) CKD stage G5/A1, GFR <15 and albumin creatinine ratio <30 mg/g: Status: Acute (3) Metabolic acidosis: Status: Resolved (4) RTA (renal tubular acidosis): Status: Acute (5) Psychotic disorder: Status: Acute DS: Medications Discharge Medications Home Medications: Home Medications Medication Instructions Recorded Confirmed calcitriol 0.25 mcg capsule 0.25 mcg PO DAILY 12/31/22 12/31/22 ergocalciferol (vitamin D2) 1,250 1,250 mcg PO QWEEK 12/31/22 12/31/22 mcg (50,000 unit) capsule febuxostat 40 mg tablet 40 mg PO DAILY 12/31/22 12/31/22 lisinopril 2.5 mg tablet 2.5 mg PO DAILY 12/31/22 12/31/22 melatonin 3 mg tablet 6 mg PO BEDTIME PRN Insomnia 12/31/22 12/31/22 Previous Rx's Medication Instructions Recorded sodium bicarbonate 650 mg tablet 1,300 mg (2 x 650 mg) PO BID 15 01/05/23 days #60 tabs sodium zirconium cyclosilicate 10 10 g PO Q2D 30 days #15 ea 01/05/23 gram oral powder packet (Lokelma) Mental Status Exam Mental Status Exam Narrative: Pt is alert and oriented; behavior is cooperative, a little irritable but calm; patient is not in distress; dressed in casual attire with long braided hair, adequate hygiene; mood is described as good and affect congruent; eye contact appropriate; Speech is normal rate, volume and prosody and not pressured; no psychomotor agitation/retardation present; thought process goal oriented, organized and linear; Thought content is on discharge, continue treatment as an outpatient and following up with [facility]; no delusional thinking expressed; denies any SI/HI. Denies all AVH; Patients insight and judgment fair and adequate Data Data Completed and Pending Completed studies during hospitalization [Text1]: 01/01/23 01/03/23 01/03/23 08:03 07:18 09:11 WBC 7.1 RBC 3.32 L Hgb 10.7 L Hct 30.5 L MCV 91.9 MCH 32.2 MCHC 35.1 H RDW 11.1 Plt Count 159 L MPV 13.0 H Absolute Nucleated RBC 0.000 Nucleated RBC % (auto) 0.0 Sodium 138 Potassium 6.4 H* 6.4 H* Chloride 112 H Carbon Dioxide 18 L Anion Gap 14 BUN 69 H Creatinine 3.86 H Estim Creat Clear Calc TNP Estimated GFR 13 Random Glucose 90 Estimat Average Glucose 80 Hemoglobin A1c % 4.4 Calcium 9.7 Total Bilirubin 0.2 AST 12 ALT 11 Alkaline Phosphatase 43 Total Protein 5.8 L Albumin 3.7 Triglycerides 177 H Cholesterol 131 LDL Cholesterol, Calc 60 HDL Cholesterol 36 L 01/03/23 01/04/23 01/05/23 14:46 07:55 13:54 WBC RBC Hgb Hct MCV MCH MCHC RDW Plt Count MPV Absolute Nucleated RBC Nucleated RBC % (auto) Sodium 139 141 141 Potassium 5.3 H 5.2 H 4.1 D Chloride 106 106 101 Carbon Dioxide 22 24 26 Anion Gap 16 16 18 BUN 68 H 72 H 80 H Creatinine 4.17 H* 4.34 H* 4.36 H* Estim Creat Clear Calc TNP TNP TNP Estimated GFR 12 12 12 Random Glucose 89 88 87 Estimat Average Glucose Hemoglobin A1c % Calcium 9.7 8.8 D 10.1 D Total Bilirubin AST ALT Alkaline Phosphatase Total Protein Albumin Triglycerides Cholesterol LDL Cholesterol, Calc HDL Cholesterol DS: Summary Hospital Course Hospital Course: HPI: Patient is a 32-year-old female with history of depression, anxiety, ADHD, 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 Patient polite, cooperative and friendly but vague in her reporting. She says she came to the hospital because she wants to talk to a doctor... Because she wants help... Saying my brain got worse in October... Patient having a difficult time articulating her symptoms. She says she 1st started getting AH of a hissing sound or police sirens in July which coincided with getting fistula placed; then she said her eye started twitching and something about her neurons.... 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 Elastic Attacher [employer]ch tried to assess her insomnia; she denies any manic episodes but reports that she will sometimes stay up late waiting for her to call (later discovered, no but boyfriend that she met online though has never physically met). Patient was a program at [facility] (though not sure for what) for the past week but instead of completing the program she was sent or agreed to go to the hospital instead; in ED she was started on Risperdal 0.25 mg b.i.d. and admitted to [facility]. Patient says that for the past 2 days on Risperdal she has been feeling better, sleeping better thinking more clearly and that AH is diminishing. -history from mom indicates that there seemed to have been mental health struggles even starting in high school. Her mother corroborates that something worsened with patient and that AVH and hyper focus on rastafarian/spiritual ideas as 1st started this past July; however on further inquiry it appears that patient has had bouts of disorganized behavior often on for at least 3 years prior which resulted in losing custody of her child. Hospital course: On admission patient was mostly organized but complaining of new onset auditory hallucinations, some confusion and insomnia though she denied any manic behaviors and none observed. However, just a couple days prior to this admission patient was started on Risperdal 0.25 mg b.i.d. in the emergency room which patient said has been very helpful; she says since Risperdal, she is able to sleep, is more clear minded and auditory hallucinations are much improved. Patient wanted to continue on the current dose. Patient is already with improvements and since she stage IV CKD, which could very likely result in Risperdal being prolonged in her system, service writer advisor agreed with patient to leave dose as it is. Over the weekend, patient developed metabolic acidosis, hyperkalemia and CKD without oliguria; lisinopril held and Sodium Bicarbonate and Sodium Zirconium Cyclosilicate restarted; hyperkalemia resolved and patient remained stable. Also over the weekend, Patient reported I have TD movements in my legs and am stopping Risperdal. Reports twitching and no longer wanted to take Risperdal. 01/05 Patient reports that she is feeling much better. She denies any AVH and says she continues to feel clear minded. Of note, patient is more clear, organized in speech with logical and linear thought process. She reiterated to service writer advisor that she developed some leg twitching from Risperdal and refuses to take it any longer. Elastic Attacher [employer]ch discussed metabolic acidosis/hyperkalemia and possible leg twitching from metabolic derangement however patient says regardless she does not want this medication anymore, that she feels fine. Elastic Attacher [employer]ch also expressed some concern and reminded patient that she 1st started feeling better, more clear minded, reduction of AH and able to sleep when she was 1st started on Risperdal and that given her kidney function there is likely still some circulating in her system; service writer advisor explained that it is quite possible or maybe even likely that symptoms will return if she remains off this medication. Patient said that she disagrees and that for now, she will take her chances and wants to discharge; she conceded that she may need medication but instead rather work with an outpatient psychiatric provider on medication regimen. Patient wanted discharge. She understood about her potassium, which had returned to baseline and said she would follow up on her own with her outpatient [facility] skin Dr. Grewal. Patient has remained with appropriate behaviors, in good self-control, without any SI or HI and AVH having fully resolved. She reports being in a good mood and is returning to her parent's house where she lives. She agrees to follow-up with outpatient therapy and Psychiatry. Patient no longer wants any medication treatment and is focused on discharge. Patient is not in imminent risk for harm to self or others and request for discharge honored. PLAN: Risperdal discontinued; patient reported having twitching in her legs and refuses to take; says she does not need Restarted Sodium Bicarbonate (Sodium Bicarbonate 650 Mg Tablet)? 1,300 mg PO BID NOE (Discussed with patient who will continue taking until she sees?Dr. Grewal to discuss further) Restarted Sodium Zirconium Cyclosilicate 10 Gm Powd.Pack (Lokelma)? 10 gm PO EVERY OTHER DAY (Discussed with patient who will continue taking until she sees?Dr. Grewal to discuss further) Holding Lisinopril: Discussed with patient who will continue to hold until she sees?Dr. Grewal to discuss further. -service writer advisor discussed case with Dr. Corral who saw patient over the weekend and recommended keeping medication changes but switching Sodium Zirconium Cyclosilicate to every other day -Discussed with patient metabolic acidosis/hyperkalemia, which is now resolved, discontinuation of lisinopril and restarting of Sodium Bicarbonate/ Sodium Zirconium Cyclosilicate. Patient says that she will follow recommendations from Nephrology consult for now but will follow-up with her outpatient [facility] skin Dr. Grewal regarding these medication changes. -Elastic Attacher Chain[employer]ch called patient's v[facility] marketing services and skin, Dr. Asia Grewal and spoke with clinical fire control assistant Lupe who said she would communicate message to Dr. Grewal. Elastic Attacher Chainstitch reported on patient's metabolic acidosis/hyperkalemia and subsequent medication changes. Elastic Attacher [employer]ch left call back number in case Dr. Grewal wanted to discuss further Time spent discussing smoking cessation with patient: 3 to 10 minutes Status at Discharge Functional status at discharge: independent ambulation Overall status at discharge: patient is back to baseline Time Spent with Patient Time attestation: Total time managing care of this patient today ____ minutes. Time spent: Greater than 30 minutes Discharge Plan Discharge Anticipated Discharge Date/Time: 01/06/23 10:00 Patient Disposition: Home, Self-Care Discharge Diagnosis: Psychotic disorder Referrals: Visitor Services Representative: Asia Grewal ([facility]) [Other] - 01/12/23 10:00 am Therapist: Elena Brown ([facility]) [Other] - 01/08/23 11:30 am Psychiatry: Anna Rao ([facility]) [Other] - 01/07/23 9:00 am (Appointment is in person at the office; please arrive 15 minutes early to complete paperwork ) [facility] [Other] (Please utilize for walk in services as needed. ) Discharge Medications: New Lokelma 10 gram Powder In Packet 10 g PO Q2D 30 Days Qty: 15 0RF Rx Instructions: take every OTHER day until meet with Dr. Grewal sodium bicarbonate 650 mg Tablet 1,300 mg PO BID 15 Days Qty: 60 0RF Continued melatonin 3 mg Tablet 6 mg PO BEDTIME PRN (Reason: Insomnia) ergocalciferol (vitamin D2) 1,250 mcg (50,000 unit) capsule 1,250 mcg PO QWEEK calcitriol 0.25 mcg capsule 0.25 mcg PO DAILY febuxostat 40 mg tablet 40 mg PO DAILY Held lisinopril 2.5 mg tablet 2.5 mg PO DAILY Hold Instructions: Resume on 01/12/23. DISCUSS WITH NEPHOLOGIST DR. SHORTY TONG TO RESUME Discontinued risperidone 0.25 mg Tablet 0.25 mg PO BID nicotine 21 mg/24 hr Patch 24 Hour 1 patch TRANSDERMAL DAILY hydroxyzine HCl 25 mg Tablet 25 mg PO TID PRN (Reason: Anxiety) Discharge Orders: Discharge Order (Routine); Ordered 01/06/23 Ordered By: Jovon Gomez Diet: K restricted diet Activity on Discharge: As tolerated Stand Alone Forms: Patient Portal Discharge page, Community Support Care Plan Goals: Maintain mood and safe behaviors Take medications as prescribed Continue to pursue abstinence from nicotine Practice coping skills Continue with outpatient providers and reach out to them as needed Health Concerns: Mood stability and behaviors Chronic kidney disease stage IV Plan of Treatment: Follow up with Dr. Grewal, your PCP and psychiatric provider and other outpatient providers regarding above concerns Continue potassium restricted diet (including no potato chips or bananas for now) Take medications as prescribed The following medication was held: HOLD Lisinopril: hold until Discuss with Dr. Grewal whether to restart The following 2 medications were restarted: 1.Take Sodium Bicarbonate (Sodium Bicarbonate 650 Mg Tablet)? 1,300 mg PO BID [facility] (take until you Discuss with Dr. Grewal whether to continue) 2.Take Sodium Zirconium Cyclosilicate 10 Gm Powd.Pack (Lokelma)?10 gm PO EVERY OTHER DAY (take until you Discuss with Dr. Grewal whether to continue) Assessment: Risk assessment at time of discharge:? Patient was interviewed prior to discharge and found to be fully oriented and without any SI or HI. Patient has improved insight and judgment and wants to continue treatment. Patient is not in imminent risk of harm to self or others and has a safety plan that includes presenting to the closest ER or calling 911 if feeling unsafe.? Patient has been observed closely by nursing and unit staff throughout admission; patient has not engaged in any behaviors that suggest dangerousness to self or others and has demonstrated appropriate behaviors and impulse control Discharge Date/Time: 01/06/23 09:59
[2023-01-06 08:00] VITALS: BP 130/60; PULSE 67; RESP 16; TEMP 36.1; O2SAT 100
[2023-01-06 09:31] LABS: Anion Gap 17 (12-20); Blood Urea Nitrogen 77 mg/dL (9-16); Calcium 8.9 mg/dL (8.4-10.2); Carbon Dioxide 23 mmol/L (22-29); Chloride 105 mmol/L (96-108); Estimated Glomerular Filt Rate 11; Glucose Random 84 mg/dL (60-115); Potassium 4.4 mmol/L (3.3-5.1); Sodium 141 mmol/L (135-145)
== END 2023-01-06 09:59 | disposition home or self-care (01) | DRG 751 ==
PROVIDERS: Clinical Nurse Specialist Psychiatric/Mental Health, Adult; Nurse Practitioner Acute Care; Admitting Provider Psychiatry & Neurology Psychiatry; Visit Provider Psychiatry & Neurology Psychiatry
DX: F29 Unspecified psychosis not due to a substance or known physiological condition (principal); E87.20 Acidosis, unspecified; N18.5 Chronic kidney disease, stage 5; F17.210 Nicotine dependence, cigarettes, uncomplicated; N25.89 Other disorders resulting from impaired renal tubular function; E87.5 Hyperkalemia; F90.9 Attention-deficit hyperactivity disorder, unspecified type; Z71.6 Tobacco abuse counseling; Z79.899 Other long term (current) drug therapy
CPT/HCPCS: 36415; 80048; 80053; 80061; 83036; 84132; 85027; 93005

== ENCOUNTER → 2022-12-31 20:32 | Outpatient (BNV) | payer OTHER, SELFPAY | PROVIDERS: Admitting Provider Psychiatry & Neurology Psychiatry; Visit Provider Psychiatry & Neurology Psychiatry | DX: F29 Unspecified psychosis not due to a substance or known physiological condition (principal); N18.5 Chronic kidney disease, stage 5; E87.5 Hyperkalemia; E87.20 Acidosis, unspecified; N25.89 Other disorders resulting from impaired renal tubular function | CPT/HCPCS: 99231; 99232 ==

== ENCOUNTER → 2022-12-31 20:32 | Outpatient (BNV) | payer MEDICAID, SELFPAY | PROVIDERS: Admitting Provider Psychiatry & Neurology Psychiatry; Visit Provider Physician Assistant Medical | DX: N18.4 Chronic kidney disease, stage 4 (severe) (principal); E87.5 Hyperkalemia | CPT/HCPCS: 99223 ==